=== PATIENT | female | born 1980 | race Caucasian/White ===

== ENCOUNTER 2018-03-04 10:24 | Emergency (ER) | payer SELFPAY ==
[~2018-03-04] VITALS: Ht 170.2 cm; Wt 81.8 kg
[2018-03-04] MEDS ORDERED: MORPHINE SULFATE 2 MG/ML SYRINGE IM ONE (11:15)
[2018-03-04] MEDS ORDERED: LIDOCAINE HCL 5% TRANSDERMAL PATCH TD ONE (11:45)
[2018-03-04] MEDS ORDERED: HYDROmorphone 2 MG/ML SYRINGE IM ONE (14:45)
[2018-03-04 16:30] VITALS: BP 121/63
== END 2018-03-04 17:15 | disposition left against medical advice (07) ==
LOC: EMS 10:27
DX: S16.1XXA Strain of muscle, fascia and tendon at neck level, initial encounter (principal); S39.012A Strain of muscle, fascia and tendon of lower back, initial encounter; S90.31XA Contusion of right foot, initial encounter; S70.01XA Contusion of right hip, initial encounter; W01.0XXA Fall on same level from slipping, tripping and stumbling without subsequent striking against object, initial encounter; Y93.89 Activity, other specified; Y92.89 Other specified places as the place of occurrence of the external cause; Y99.8 Other external cause status
CPT/HCPCS: 72131; 73630; 74176; 96372; 99284; J1170; J2270

== ENCOUNTER 2018-03-19 07:33 | Emergency (ER) | payer MEDICAID ==
[~2018-03-19] VITALS: Ht 167.6 cm; Wt 77.3 kg
[2018-03-19] MEDS ORDERED: CYCLOBENZAPRINE HCL 10 MG TABLET PO ONE (08:30)
[2018-03-19 08:40] LABS: BASOPHILS % (AUTO) 1.7 % (0.0-2.0); EOSINOPHILS % (AUTO) 3.5 % (1.0-6.0); HEMATOCRIT 38.3 % (36-46); HEMOGLOBIN 13.3 g/dL (12.0-16.0); LYMPHOCYTES # (AUTO) 1.3 K/uL (1.0-4.8); MEAN CORPUSCULAR HEMOGLOBIN 31.8 pg (26.0-34.0); MEAN CORPUSCULAR HGB CONC 34.7 G/dL (31.0-37.0); MEAN CORPUSCULAR VOLUME 92 fL (80-100); MONOCYTES # (AUTO) 0.5 K/uL (0.1-1.0); MONOCYTES % (AUTO) 8.4 % (2.0-9.0); NEUTROPHILS # (AUTO) 3.4 K/uL (1.8-7.7); NEUTROPHILS % (AUTO) 62.4 % (40.0-70.0); PLATELET COUNT (AUTO) 236 K/uL (150-450); RED BLOOD CELL COUNT(AUTO) 4.18 MIL/uL (4.00-5.20)
[2018-03-19 08:53] LABS: ANION GAP 14 mmol/L (8-16); CARBON DIOXIDE 21 mmol/L (22-29); CHLORIDE 104 mmol/L (98-107); CREATININE 0.88 mg/dL (0.60-1.30); GLOMERULAR FILTR. RATE CALC > 60 mL/min (>60); GLUCOSE,RANDOM 93 mg/dL (70-110); POTASSIUM 3.6 mmol/L (3.5-5.1); SODIUM SERUM 139 mmol/L (136-145); UREA NITROGEN, BLOOD 9 mg/dL (7-18)
[2018-03-19 08:59] LABS: ALANINE AMINOTRANSFERASE 21 U/L (12-78); ALBUMIN 3.6 g/dL (3.4-5.0); ALKALINE PHOSPHATASE 48 U/L (46-116); ASPARTATE AMINOTRANSFERASE 23 U/L (15-37); BILIRUBIN,TOTAL 0.4 mg/dL (0.1-1.0); TOTAL PROTEIN, SERUM 7.5 g/dL (6.4-8.2)
[2018-03-19] MEDS ORDERED: OxyCODONE HCL 5 MG IR TABLET PO ONE (10:30)
[2018-03-19 11:20] VITALS: BP 99/55
== END 2018-03-19 12:21 | disposition home or self-care (01) ==
LOC: EMS 07:34
DX: R91.1 Solitary pulmonary nodule (principal); R00.1 Bradycardia, unspecified; M79.601 Pain in right arm; M79.602 Pain in left arm; M79.605 Pain in left leg; M79.604 Pain in right leg; R07.9 Chest pain, unspecified; Z88.1 Allergy status to other antibiotic agents; Z88.8 Allergy status to other drugs, medicaments and biological substances
CPT/HCPCS: 71101; 99285

== ENCOUNTER 2019-05-18 15:17 | Inpatient (IN) | payer MEDICAID ==
[~2019-05-18] VITALS: Ht 172.7 cm; Wt 93.3 kg
[2019-05-18] MEDS: HALOPERIDOL 5 MG TABLET PO PRN (21:25)
[2019-05-18] MEDS: LORazepam 1 MG TABLET PO PRN (21:25)
[2019-05-18 21:39] VITALS: BP 112/48
[2019-05-18 21:41] VITALS: BP 112/48
[2019-05-18] MEDS ORDERED: DOCUSATE SODIUM 100 MG CAPSULE PO PRN (22:00)
[2019-05-18] MEDS ORDERED: INFLUENZA VIRUS VACCINE QVS 2019-20 (3YR+)/PF 60 MCG/0.5 ML SYRINGE IM ONE (22:45)
[2019-05-18] MEDS: ZOLPIDEM TARTRATE 10 MG TABLET PO PRN (23:00)
[2019-05-19 06:25] VITALS: BP 105/62
[2019-05-19] MEDS: HALOPERIDOL 5 MG TABLET PO PRN ×4 (07:51→23:35)
[2019-05-19] MEDS: LORazepam 1 MG TABLET PO PRN ×3 (07:51→22:29)
[2019-05-19 08:09] LABS: BASOPHILS % (AUTO) 1.2 % (0.0-2.0); EOSINOPHILS % (AUTO) 7.1 % (1.0-6.0); HEMATOCRIT 35.2 % (36-46); HEMOGLOBIN 11.9 g/dL (12.0-16.0); LYMPHOCYTES # (AUTO) 1.3 K/uL (1.0-4.8); LYMPHOCYTES % (AUTO) 27.6 % (22.0-44.0); MEAN CORPUSCULAR HEMOGLOBIN 31.2 pg (26.0-34.0); MEAN CORPUSCULAR HGB CONC 33.9 G/dL (31.0-37.0); MEAN CORPUSCULAR VOLUME 92 fL (80-100); MONOCYTES # (AUTO) 0.5 K/uL (0.1-1.0); MONOCYTES % (AUTO) 10.2 % (2.0-9.0); NEUTROPHILS # (AUTO) 2.6 K/uL (1.8-7.7); NEUTROPHILS % (AUTO) 53.9 % (40.0-70.0); PLATELET COUNT (AUTO) 234 K/uL (150-450); RED BLOOD CELL COUNT(AUTO) 3.82 MIL/uL (4.00-5.20); RED CELL DISTRIBUTION WIDTH 12.7 % (11.5-14.5)
[2019-05-19 08:46] LABS: ALBUMIN 3.2 g/dL (3.4-5.0); ALKALINE PHOSPHATASE 80 U/L (46-116); ANION GAP 9 mmol/L (8-16); ASPARTATE AMINOTRANSFERASE 20 U/L (15-37); BILIRUBIN,TOTAL 0.3 mg/dL (0.1-1.0); CARBON DIOXIDE 26 mmol/L (22-29); CHLORIDE 102 mmol/L (98-107); CHOL/HDL RATIO 5.8 (3.9-5.7); CHOLESTEROL 186 mg/dL (131-200); CREATININE 1.01 mg/dL (0.60-1.30); FREE T4 (FREE THYROXINE) 1.17 ng/dL (0.76-1.46); GLOMERULAR FILTR. RATE CALC > 60 mL/min (>60); GLUCOSE,RANDOM 83 mg/dL (70-110); HCG,QUANTITATIVE < 1 mIU/mL (0-6); HDL CHOLESTEROL 32 mg/dL (40-60); LDL CHOL (CALC.) 135 mg/dL (0-130); POTASSIUM 4.2 mmol/L (3.5-5.1); SODIUM SERUM 137 mmol/L (136-145); THYROID STIMULATING HORMONE 1.28 uIU/mL (0.36-3.74); TOTAL PROTEIN, SERUM 6.7 g/dL (6.4-8.2); TRIGLYCERIDES 95 mg/dL (15-150); UREA NITROGEN, BLOOD 11 mg/dL (7-18)
[2019-05-19 09:05] LABS: ALANINE AMINOTRANSFERASE 22 U/L (12-78)
[2019-05-19] MEDS: SERTRALINE HCL 50 MG TABLET PO SCH (12:45)
[2019-05-19 16:15] VITALS: BP 102/52
[2019-05-19 17:11] VITALS: BP 112/85
[2019-05-19] MEDS: BUPRENORPHINE HCL/NALOXONE HCL 8-2 MG SUBLINGUAL TABLET SL SCH (17:12)
[2019-05-19] MEDS: ZOLPIDEM TARTRATE 10 MG TABLET PO PRN (23:35)
[2019-05-20 06:40] VITALS: BP 100/80
[2019-05-20] MEDS: LORazepam 1 MG TABLET PO PRN ×2 (07:00→15:41)
[2019-05-20 08:02] VITALS: BP 100/65
[2019-05-20] MEDS: BUPRENORPHINE HCL/NALOXONE HCL 8-2 MG SUBLINGUAL TABLET SL SCH (08:36)
[2019-05-20] MEDS: SERTRALINE HCL 50 MG TABLET PO SCH (08:36)
[2019-05-20 16:15] VITALS: BP 104/61
[2019-05-20] MEDS ORDERED: SERTRALINE HCL 50 MG TABLET PO SCH (19:45)
[2019-05-20] MEDS ORDERED: TraZODone HCL 100 MG TABLET PO SCH (21:00)
[2019-05-20] MEDS: NICOTINE 14 MG/24 HOUR PATCH TD SCH (22:31)
[2019-05-20] MEDS: ZOLPIDEM TARTRATE 10 MG TABLET PO PRN (23:05)
[2019-05-20] MEDS: HALOPERIDOL 5 MG TABLET PO PRN (23:35)
[2019-05-21 00:03] VITALS: BP 122/63
[2019-05-21] MEDS: HALOPERIDOL 5 MG TABLET PO PRN (06:43)
[2019-05-21] MEDS: NICOTINE 14 MG/24 HOUR PATCH TD SCH (08:01)
[2019-05-21] MEDS: BUPRENORPHINE HCL/NALOXONE HCL 8-2 MG SUBLINGUAL TABLET SL SCH (08:01)
[2019-05-21 08:11] VITALS: BP 100/61
[2019-05-21 08:15] VITALS: BP 90/50
[2019-05-21] MEDS ORDERED: SERTRALINE HCL 100 MG TABLET PO SCH (09:00)
[2019-05-21] MEDS: HydrOXYzine PAMOATE 25 MG CAPSULE PO PRN (14:10)
[2019-05-21] MEDS: QUEtiapine FUMARATE 100 MG TABLET PO SCH (16:04)
[2019-05-21 16:09] VITALS: BP 97/54
[2019-05-22 06:31] VITALS: BP 100/62
[2019-05-22] MEDS: NICOTINE 14 MG/24 HOUR PATCH TD SCH (08:30)
[2019-05-22] MEDS: BUPRENORPHINE HCL/NALOXONE HCL 8-2 MG SUBLINGUAL TABLET SL SCH (08:30)
[2019-05-22] MEDS: SERTRALINE HCL 100 MG TABLET PO SCH (08:35)
[2019-05-22] MEDS: HydrOXYzine PAMOATE 25 MG CAPSULE PO PRN ×2 (12:18→22:50)
[2019-05-22 16:08] VITALS: BP 102/51
[2019-05-22] MEDS: QUEtiapine FUMARATE 100 MG TABLET PO SCH (16:19)
[2019-05-23 06:38] VITALS: BP 102/74
[2019-05-23] MEDS: BUPRENORPHINE HCL/NALOXONE HCL 8-2 MG SUBLINGUAL TABLET SL SCH (08:14)
[2019-05-23] MEDS: SERTRALINE HCL 100 MG TABLET PO SCH (08:14)
[2019-05-23] MEDS: NICOTINE 14 MG/24 HOUR PATCH TD SCH (08:20)
[2019-05-23 08:32] VITALS: BP 113/70
[2019-05-23] MEDS ORDERED: QUET100T PO (08:54)
[2019-05-23] MEDS ORDERED: BUPR1FIL3 SL (08:54)
[2019-05-23] MEDS ORDERED: SERT100T12 PO (08:54)
[2019-05-23] MEDS ORDERED: HYDR-4031 PO (08:54)
== END 2019-05-23 10:29 | disposition home or self-care (01) | DRG 751 ==
LOC: B2S 20:20 → B3A 21:38
PROVIDERS: ADMIT Psychiatry & Neurology Psychiatry; ATTEND Psychiatry & Neurology Psychiatry
DX: F33.3 Major depressive disorder, recurrent, severe with psychotic symptoms (principal); F11.20 Opioid dependence, uncomplicated; R45.851 Suicidal ideations; D64.9 Anemia, unspecified; E78.5 Hyperlipidemia, unspecified; F13.90 Sedative, hypnotic, or anxiolytic use, unspecified, uncomplicated; F41.9 Anxiety disorder, unspecified; F60.3 Borderline personality disorder; K21.9 Gastro-esophageal reflux disease without esophagitis; Z59.0 Homelessness; Z91.5 Personal history of self-harm; Z28.21 Immunization not carried out because of patient refusal; Z88.8 Allergy status to other drugs, medicaments and biological substances
CPT/HCPCS: 83036; 84439; 84443